=== PATIENT | male | born 1975 ===

== ENCOUNTER 2018-04-16 14:05 | Emergency (ER) | payer OTHER, SELFPAY ==
[2018-04-16 14:09] VITALS: BP 139/86; PULSE 89; RESP 20; TEMP 36.9; O2SAT 99
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
--- NOTE | 2018-04-16 15:25 | PC.NURSE ---
[facility] called and visited pt.
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
[2018-04-16 16:20] VITALS: BP 146/86; PULSE 80; RESP 18; O2SAT 100
--- NOTE | 2018-04-16 16:26 | PC.NURSE ---
pt active , updated with immunizations.
== END 2018-04-16 16:27 | disposition home or self-care (01) ==
PROVIDERS: Emergency Provider Emergency Medicine
DX: T23.032A Burn of unspecified degree of multiple left fingers (nail), not including thumb, initial encounter (principal); Y27.9XXA Contact with unspecified hot objects, undetermined intent, initial encounter; W34.00XA Accidental discharge from unspecified firearms or gun, initial encounter
CPT/HCPCS: 73130; 99282; 99283